=== PATIENT | female | born 1960 | race Caucasian/White ===

== ENCOUNTER 2016-07-05 06:46 | Day surgery (SDC) | payer BC ==
--- NOTE | ~2016-07-05 | EGD ---
EGD REPORT [facility] [place] [address] [id number] NAME: DELLA BRAY : 62 STATUS : REG [facility]#: [id number] AGE: 55 ADM/REG DATE : 07/05/16 MR#: [id number] REPORT SERV DATE: 07/05/16 DICTATED BY: DATE: REPORT STATUS : Draft TRANSCRIBED BY: [employer] DATE: 07/05/16 [facility] Patient Name: Della Bray Date of : 1960 Attending MD: NICHOLE RIOS MD Procedure Date No Time: 07/05/2016 Procedure: Colonoscopy Indications: High risk colon CA surveillance: Personal history multiple (3 or more) adenomas Medicines: Monitored Anesthesia Care Complications: No immediate complications. Procedure: Pre-Anesthesia Assessment: - ASA Grade Assessment: I - A normal, healthy patient. After I obtained informed consent, the scope was passed under direct vision. Throughout the procedure, the patient's blood pressure, pulse, and oxygen saturations were monitored continuously. The PCF [id number] was introduced through the anus and advanced to the cecum, identified by appendiceal orifice and ileocecal valve. The colonoscopy was performed without difficulty. The patient tolerated the procedure well. The quality of the bowel preparation was excellent. Findings: The perianal and digital rectal examinations were normal. A few diverticula were found in the sigmoid colon. A sessile polyp was found in the transverse colon. The polyp was small in size. The polyp was removed with a cold snare. Resection and retrieval were complete. A sessile polyp was found in the descending colon. The polyp was diminutive in size. The polyp was removed with a cold biopsy forceps. Resection and retrieval were complete. No other significant abnormalities were identified in a careful examination of the remainder of the colon. There is no endoscopic evidence of inflammation, mass, ulcerations or angioectasia in the entire colon. No additional abnormalities were found on retroflexion. Impression: - Diverticulosis in the sigmoid colon. - One small polyp in the transverse colon. Resected and retrieved. - One diminutive polyp in the descending colon. Resected and retrieved. Recommendation: - Patient has a contact number available for EGD REPORT [address] [address] NAME: DELLA BRYA : [birth year] STATUS : [facility] [place] PAT#: [id number] AGE: 55 ADM/REG DATE : 07/05/16 MR#: [id number] REPORT SERV DATE: 07/05/16 DICTATED BY: DATE: REPORT STATUS : Draft TRANSCRIBED BY: [employer] DATE: 07/05/16 emergencies. The signs and symptoms of potential delayed complications were discussed with the patient. Return to normal activities tomorrow. Written discharge instructions were provided to the patient. - High fiber diet. - Discharge patient to home. - Continue present medications. - Await pathology results. - Repeat colonoscopy in 5 years for surveillance. Procedure Code(s): --- Professional --- 64331, Colonoscopy, flexible, proximal to splenic flexure; with removal of tumor(s), polyp(s), or other lesion(s) by snare technique 80439, 59, Colonoscopy, flexible, proximal to splenic flexure; with biopsy, single or multiple Diagnosis Code(s): --- Professional --- K57.30, Diverticulosis of large intestine without perforation or abscess without bleeding D12.4, Benign neoplasm of descending colon D12.3, Benign neoplasm of transverse colon Z86.010, Personal history of colonic polyps CPT copyright 2013 [employer]. All rights reserved. The codes documented in this report are preliminary and upon butting saw operator review may be revised to meet current compliance requirements. NICHOLE RIOS MD 07/05/2016 9:23 AM This report has been signed electronically. Number of Addenda: 0 Note Initiated On: 07/05/2016 8:53 AM [address] [id number]
[~2016-07-05 06:46] MED LIST: ADVIL PO; BEN25 PO; CLARIT10 PO
== END 2016-07-05 23:59 | disposition home or self-care (01) ==
LOC: DMU 06:46
PROVIDERS: Internal Medicine Gastroenterology
PROC: 0DBM8ZX Excision of Descending Colon, Via Natural or Artificial Opening Endoscopic, Diagnostic (ICD-10-PCS; principal; 2016-07-05 08:00)
PROC: 0DBL8ZZ Excision of Transverse Colon, Via Natural or Artificial Opening Endoscopic (ICD-10-PCS; 2016-07-05 08:00)
DX: Z12.11 Encounter for screening for malignant neoplasm of colon (principal); D12.3 Benign neoplasm of transverse colon; K57.30 Diverticulosis of large intestine without perforation or abscess without bleeding; K63.5 Polyp of colon; Z86.010 Personal history of colon polyps
CPT/HCPCS: 88305